=== PATIENT | female | born 1990 | race Caucasian/White ===

== ENCOUNTER 2016-07-01 09:25 | Emergency (ER) | payer OTHER ==
[2016-07-01 10:37] VITALS: BP 104/61
--- NOTE | 2016-07-01 10:40 | UC ---
Skin Complaint HPI - HPI Summary HPI Summary: 1) Tattoo on right upper arm one week ago. Pruritic pustules spreading for five days. 2) External vaginal itching and yellow vaginal discharge worsening over about five days. Patient believes it is a yeast infection. Denies change in sexual partner or concern for STI. Has had previous yeast infections and feels identical at this time. 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 PCP Hyacinth Barkley. [ End ] - History of Current Complaint Chief Complaint: UCGeneralIllness Time Seen by Provider: 07/01/16 10:33 Stated Complaint: RASH/PERSONAL Hx Obtained From: Patient Hx Last Menstrual Period: 05/15/16 ?: No Onset/Duration: Gradual Onset Onset Severity: Mild Current Severity: Moderate Aggravating: Nothing Alleviating: Nothing Associated Signs & Symptoms: Positive: Negative - Allergy/Home Medications Allergies/Adverse Reactions: Allergies Allergy/AdvReac Type Severity Reaction Status Date / Time Adhesive Tape Allergy Rash Verified 07/01/16 10:15 Bee Venom Allergy Swelling Verified 07/01/16 10:15 Penicillins Allergy Unknown Verified 07/01/16 10:15 Reaction Details Review of Systems Constitutional: Negative Skin: Rash Eyes: Negative ENT: Negative Respiratory: Negative Cardiovascular: Negative Gastrointestinal: Negative Genitourinary: Negative, Other - vaginal itching Motor: Negative Neurovascular: Negative Musculoskeletal: Negative Neurological: Negative Psychological: Negative All Other Systems Reviewed And Are Negative: Yes PMH/Surg Hx/FS Hx/Imm Hx Previously Healthy: Yes Endocrine History Of: Reports: Thyroid Disease - Hypothyroidism Denies: Diabetes Cardiovascular History Of: Denies: Cardiac Disorders, Hypertension Respiratory History Of: Reports: Asthma Denies: COPD GI/ History Of: Denies: Ulcer Psychological History Of: Denies: Anxiety - Surgical History Surgical History: Yes Surgery Procedure, Year, and Place: Tubal Ligation, 04/14/16, [place]; Bilateral Kidney Stents, 2012. Tonsillectomy - Family History Known Family History: Positive: None - Social History Alcohol Use: Rare Alcohol Amount: 1 Beer nightly or every other night Substance Use Type: None Smoking Status (MU): Heavy Every Day Tobacco Smoker Type: Cigarettes Amount Used/How Often: 1/2 PPD Length of Time of Smoking/Using Tobacco: 7 Years Have You Smoked in the Last Year: Yes Household Exposure Type: Cigarettes Physical Exam Triage Information Reviewed: Yes Appearance: Well-Appearing, No Pain Distress, Well-Nourished Vital Signs: Initial Vital Signs Temp 98.4 F 07/01/16 10:11 Pulse 95 07/01/16 10:11 Resp 18 07/01/16 10:11 BP 104/61 07/01/16 10:11 Pulse Ox 99 07/01/16 10:11 Vital Signs Reviewed: Yes Eye Exam: Normal ENT Exam: Normal Dental Exam: Normal Neck exam: Normal Neck: Positive: 1 Respiratory Exam: Normal Cardiovascular Exam: Normal Musculoskeletal Exam: Normal Neurological Exam: Normal Psychological Exam: Normal Skin: Positive: rashes, significant lesion(s) - right arm, raised, pruritic, papular lesions honey colored and some are crusted and others with some mild honey colored discharge Course/Dx - Diagnoses Provider Diagnoses: Impetigo / staph infection right arm from previous recent tatoo Discharge - Discharge Plan Condition: Good Disposition: HOME Prescriptions: Cephalexin CAP* [Keflex CAP*] 500 mg PO TID #30 cap Patient Education Materials: Impetigo (ED) Referrals: CATERINA Briceno [Primary Care Provider] - 3 Days
== END 2016-07-01 11:28 | disposition home or self-care (01) ==
LOC: UCCORT 09:25
DX: L01.00 Impetigo, unspecified (principal); L81.8 Other specified disorders of pigmentation; A49.01 Methicillin susceptible Staphylococcus aureus infection, unspecified site; Z88.0 Allergy status to penicillin; F17.210 Nicotine dependence, cigarettes, uncomplicated
CPT/HCPCS: 87070; 87205; 87640; 87641; 99212; G0463

== ENCOUNTER 2016-09-05 16:11 | Emergency (ER) | payer OTHER ==
[2016-09-05 16:28] VITALS: BP 116/71
--- NOTE | 2016-09-05 17:19 | UC ---
UC Dental HPI - HPI Summary HPI Summary: 26 yo female with right upper dental pain x 2 weeks worse past 1-2 days now face feels swollen no f/c also c/o vaginal itching and vulvar rash x 1 day - History of Current Complaint Chief Complaint: UCDentalProblem Stated Complaint: DENTAL COMPLAINT/PERSONAL Time Seen by Provider: 09/05/16 16:30 Hx Obtained From: Patient Hx Last Menstrual Period: july 17 Onset/Duration: Gradual Onset, Lasting Weeks, Worse Since - 1-2 days Severity: Severe Pain Intensity: 7 Pain Scale Used: 0-10 Numeric Aggravating: Nothing Alleviating: Nothing - Allergies/Home Medications Allergies/Adverse Reactions: Allergies Allergy/AdvReac Type Severity Reaction Status Date / Time Adhesive Tape Allergy Rash Verified 09/05/16 16:28 Bee Venom Allergy Swelling Verified 09/05/16 16:28 Penicillins Allergy Unknown Verified 09/05/16 16:28 Reaction Details PMH/Surg Hx/FS Hx/Imm Hx Previously Healthy: Yes - Surgical History Surgical History: Yes Surgery Procedure, Year, and Place: Bilateral Kidney Stents, 2012. Tonsillectomy - Family History Known Family History: Positive: Cardiac Disease, Hypertension, Diabetes, Other - [place] various types - Social History Alcohol Use: Occasionally Alcohol Amount: 1 Beer nightly or every other night Substance Use Type: None Smoking Status (MU): Heavy Every Day Tobacco Smoker Type: Cigarettes Amount Used/How Often: 1/2 PPD Length of Time of Smoking/Using Tobacco: 7 Years Have You Smoked in the Last Year: Yes Household Exposure Type: Cigarettes Review of Systems Constitutional: Negative Skin: Negative Eyes: Negative ENT: Dental Pain Respiratory: Negative Cardiovascular: Negative Gastrointestinal: Negative Genitourinary: Other - vag itch and vulvar rash Motor: Negative Neurovascular: Negative Musculoskeletal: Negative Neurological: Negative Psychological: Negative All Other Systems Reviewed And Are Negative: Yes Physical Exam Triage Information Reviewed: Yes Appearance: Well-Appearing, No Pain Distress, Well-Nourished Vital Signs: Initial Vital Signs Temp 98.3 F 09/05/16 16:22 Pulse 76 09/05/16 16:22 Resp 16 09/05/16 16:22 BP 116/71 09/05/16 16:22 Pulse Ox 100 09/05/16 16:22 Vital Signs Reviewed: Yes Eyes: Positive: Conjunctiva Clear ENT: Positive: Hearing grossly normal. Negative: Nasal congestion, Nasal drainage, Trismus, Muffled/hoarse voice Dental: Positive: Other: - generalized porr dention Neck: Positive: Supple, Nontender Respiratory: Positive: Lungs clear, Normal breath sounds, No respiratory distress Cardiovascular: Positive: RRR, No Murmur Abdomen Description: Positive: Nontender, No Organomegaly, Soft, Other: - ext genitialia- red rash, vagina-whitish d/c, cervix no d/c, no CMT,adenexa- nontenter no mass, uterus normal size Musculoskeletal: Positive: ROM Intact, No Edema Dental Complaint Course/Dx - Differential Dx/Diagnosis Provider Diagnoses: dentalagia. vulvovaginitis (suspect yeast) Discharge - Discharge Plan Condition: Stable Disposition: HOME Prescriptions: Clindamycin Cap(NF) [Cleocin 300 mg Cap(NF)] 300 mg PO QID #28 cap Fluconazole 150 MG (NF) [Diflucan 150 mg (NF)] 150 mg PO WEEKLY #3 tab HYDROcodone/ACETAMIN 5-325 MG* [[place] 5-325 TAB*] 1 tab PO Q4H PRN #8 tab MDD 2 PRN Reason: Pain - Severe Ibuprofen TAB* [Motrin TAB*] 600 mg PO Q6H PRN #40 tab PRN Reason: Pain Patient Education Materials: Vaginitis (ED), Toothache (ED) Referrals: CATERINA Briceno [Primary Care Provider] - 7 Days (if not better) Additional Instructions: to er for new or worsening symptoms
== END 2016-09-05 17:15 | disposition home or self-care (01) ==
LOC: UCCORT 16:11
DX: K08.89 Other specified disorders of teeth and supporting structures (principal); N76.0 Acute vaginitis; Z91.030 Bee allergy status; Z88.0 Allergy status to penicillin; Z91.048 Other nonmedicinal substance allergy status; F17.210 Nicotine dependence, cigarettes, uncomplicated
CPT/HCPCS: 87480; 87491; 87510; 87591; 99212; G0463

== ENCOUNTER 2016-10-09 16:54 | Emergency (ER) | payer OTHER ==
--- NOTE | 2016-10-09 17:05 | UC ---
Throat Pain/Nasal Paco HPI - HPI Summary HPI Summary: 26 year old female presents with complains of sinus congestion. - History of Current Complaint Stated Complaint: HEADACHE,SINUSES, EARS Time Seen by Provider: 10/09/16 17:04 Hx Last Menstrual Period: july 17 - Allergies/Home Medications Allergies/Adverse Reactions: Allergies Allergy/AdvReac Type Severity Reaction Status Date / Time Adhesive Tape Allergy Rash Verified 10/09/16 17:04 Bee Venom Allergy Swelling Verified 10/09/16 17:04 Penicillins Allergy Unknown Verified 10/09/16 17:04 Reaction Details Home Medications: Home Medications Phenylephrine-Chlorpheniramine [Jazz-[place] Plus Cold & 5-2-10-325 mg] 1 cap PO Q6H PRN 10/09/16 [History Confirmed 10/09/16] PMH/Surg Hx/FS Hx/Imm Hx - Surgical History Surgical History: Yes Surgery Procedure, Year, and Place: Bilateral Kidney Stents, 2013. Tonsillectomy - Family History Known Family History: Positive: None, Cardiac Disease, Hypertension, Diabetes, Other - [place] various types - Social History Alcohol Use: Occasionally Alcohol Amount: 1 Beer nightly or every other night Substance Use Type: None Smoking Status (MU): Heavy Every Day Tobacco Smoker Type: Cigarettes Amount Used/How Often: 1/2 PPD Length of Time of Smoking/Using Tobacco: 7 Years Have You Smoked in the Last Year: Yes Household Exposure Type: Cigarettes Review of Systems Constitutional: Negative Skin: Negative Eyes: Negative ENT: Sinus Congestion, Sinus Pain/Tenderness Respiratory: Negative Cardiovascular: Negative Gastrointestinal: Negative Genitourinary: Negative Motor: Negative Neurovascular: Negative Musculoskeletal: Negative Neurological: Negative Psychological: Negative All Other Systems Reviewed And Are Negative: Yes Physical Exam Triage Information Reviewed: Yes Eye Exam: Normal ENT Exam: Normal ENT: Positive: Pharyngeal erythema, Nasal congestion Dental Exam: Normal Neck exam: Normal Neck: Positive: 1 Respiratory Exam: Normal Cardiovascular Exam: Normal Abdominal Exam: Normal Musculoskeletal Exam: Normal Neurological Exam: Normal Psychological Exam: Normal Skin Exam: Normal Throat Pain/Nasal Course/Dx - Differential Dx/Diagnosis Provider Diagnoses: sinusitis Discharge - Discharge Plan Condition: Stable Disposition: HOME Prescriptions: Azithromyxin HAMZAH (NF) [Z-Hamzah (Zithromax) 250 mg tabs #6] 2 tab PO .TODAY, THEN 1 DAILY #6 tab Fluticasone NASAL * [Flonase *] 2 spray BOTH NARES DAILY #1 btl Patient Education Materials: Sinusitis (ED) Referrals: CATERINA LoweryMillie [Primary Care Provider] - If Needed
[2016-10-09 17:09] VITALS: BP 126/72
== END 2016-10-09 17:17 | disposition home or self-care (01) ==
LOC: UCCORT 16:54
DX: J32.9 Chronic sinusitis, unspecified (principal); Z88.0 Allergy status to penicillin; F17.210 Nicotine dependence, cigarettes, uncomplicated
CPT/HCPCS: 99212; G0463

== ENCOUNTER 2016-12-09 09:19 | Emergency (ER) | payer OTHER ==
[2016-12-09 09:52] VITALS: BP 100/59
--- NOTE | 2016-12-09 10:12 | UC ---
Complaint Female HPI - HPI Summary HPI Summary: 26 year old with history of previous UTI and kidney stones. Has Urinary burning & frequency x2 days. Today, pt woke up w/ lower back pain that is mild and relieved by APAP. No n/v/d of fever. no flank pain. no recent travel or abx. [ End ] - History Of Current Complaint Chief Complaint: UCGU Stated Complaint: BACK PAIN/URINARY Time Seen by Provider: 12/09/16 09:57 Hx Obtained From: Patient Hx Last Menstrual Period: 11/24/16 Onset/Duration: Gradual Onset Character: Dull Aggravating Factor(s): Urination Associated Signs And Symptoms: Positive: Negative, Back Pain - Allergies/Home Medications Allergies/Adverse Reactions: Allergies Allergy/AdvReac Type Severity Reaction Status Date / Time Adhesive Tape Allergy Rash Verified 12/09/16 09:41 Bee Venom Allergy Swelling Verified 12/09/16 09:41 Penicillins Allergy Unknown Verified 12/09/16 09:41 Reaction Details Home Medications: Home Medications Acetaminophen TAB* [Tylenol TAB*] 1,000 mg PO Q4H PRN 12/09/16 [History Confirmed 12/09/16] Citalopram TAB* [Celexa TAB*] 40 mg PO DAILY 12/09/16 [History Confirmed ] PMH/Surg Hx/FS Hx/Imm Hx Previously Healthy: Yes GI/ History: Kidney Stones - Surgical History Surgical History: Yes Surgery Procedure, Year, and Place: Bilateral Kidney Stents, 2013. Tonsillectomy. tubal - Family History Known Family History: Positive: None, Cardiac Disease, Hypertension, Diabetes, Other - [place] various types - Social History Occupation: Employed Full-time Lives: With Family Alcohol Use: None Alcohol Amount: 1 Beer nightly or every other night Substance Use Type: None Smoking Status (MU): Heavy Every Day Tobacco Smoker Type: Cigarettes Amount Used/How Often: 1/2 PPD Length of Time of Smoking/Using Tobacco: 7 Years Have You Smoked in the Last Year: Yes Household Exposure Type: Cigarettes Review of Systems Genitourinary: Dysuria, Frequency, Urgency All Other Systems Reviewed And Are Negative: Yes Physical Exam Triage Information Reviewed: Yes Appearance: Well-Appearing, No Pain Distress, Well-Nourished Vital Signs: Initial Vital Signs Temp 98.1 F 12/09/16 09:42 Pulse 80 12/09/16 09:42 Resp 16 12/09/16 09:42 BP 100/59 12/09/16 09:42 Pulse Ox 98 12/09/16 09:42 Vital Signs Reviewed: Yes Eye Exam: Normal ENT Exam: Normal Dental Exam: Normal Neck exam: Normal Neck: Positive: 1 Respiratory Exam: Normal Cardiovascular Exam: Normal Abdominal Exam: Normal Abdomen Description: Negative: CVA Tenderness (R), CVA Tenderness (L) Musculoskeletal Exam: Normal Neurological Exam: Normal Psychological Exam: Normal Skin Exam: Normal Complaint Female Dx - Course Course Of Treatment: She does not have CVA tenderness. She is aware of S/S of kidney stones and denies feeling like that at this time as she has had stones in the past surgically removed at [facility]. She will call for f/u at [facility] if any concerns. - Differential Dx/Diagnosis Differential Diagnosis/HQI/PQRI: Ureteral Stone, Urinary Tract Infection Provider Diagnoses: UTI Discharge - Discharge Plan Condition: Good Disposition: HOME Prescriptions: Sulfamethox/Trimethoprim DS* [Bactrim DS 800/160 TAB*] 1 tab PO BID #10 tab Patient Education Materials: Urinary Tract Infection in Women (ED) Referrals: CATERINA Briceno [Primary Care Provider] - 3 Days Additional Instructions: As we discussed if your symptoms do not resolve please go to your Urologist at [facility]
== END 2016-12-09 10:27 | disposition home or self-care (01) ==
LOC: UCCORT 09:19
DX: N39.0 Urinary tract infection, site not specified (principal); B95.7 Other staphylococcus as the cause of diseases classified elsewhere; Z87.440 Personal history of urinary (tract) infections; Z87.442 Personal history of urinary calculi; Z91.030 Bee allergy status; Z88.0 Allergy status to penicillin; Z91.048 Other nonmedicinal substance allergy status; F17.210 Nicotine dependence, cigarettes, uncomplicated
CPT/HCPCS: 81003; 87077; 87086; 99212; G0463

== ENCOUNTER 2017-02-01 17:27 | Emergency (ER) | payer OTHER ==
[2017-02-01 17:57] VITALS: BP 110/66
--- NOTE | 2017-02-01 18:53 | RAD ---
HISTORY: Remote trauma, tailbone pain COMPARISONS: None VIEWS: 3, frontal, outlet, and lateral views of the sacrum and coccyx FINDINGS: BONE DENSITY: Normal. BONES: There is no displaced fracture. The sacral arches are intact. JOINTS: There is no arthropathy. ALIGNMENT: There is no dislocation. SOFT TISSUES: Unremarkable. OTHER FINDINGS: Surgical clips are noted in the pelvis. IMPRESSION: NO ACUTE OSSEOUS INJURY OF THE SACRUM AND COCCYX. PLAIN FILMS ARE RELATIVELY INSENSITIVE TO NONDISPLACED FRACTURES OF THE SACRUM AND COCCYX. IF THERE IS PERSISTENT CLINICAL CONCERN FOR SACROCOCCYGEAL OSSEOUS PATHOLOGY, BONE SCANNING MAY BE MORE SENSITIVE
--- NOTE | 2017-02-01 18:55 | UC ---
Complaint Female HPI - HPI Summary HPI Summary: urinary frequency and urgency x 2 days worse at night, no burning, no fever, no chills 2. lower back pain x 2 years / injury to her tailbone 2 years ago , cont. to have pain - History Of Current Complaint Chief Complaint: UCGU Stated Complaint: URINARY;TAILBONE PAIN OLD INJURY Time Seen by Provider: 02/01/17 17:47 Hx Obtained From: Patient Hx Last Menstrual Period: Tubal, irreg, 01/29/17 ?: No Onset/Duration: Gradual Onset, Lasting Days - 2, Still Present Timing: Constant Severity Initially: Moderate Severity Currently: Moderate Character: Not Applicable Aggravating Factor(s): Urination Associated Signs And Symptoms: Positive: Back Pain. Negative: Fever, Vaginal Bleeding/Discharge, Vaginal Discharge, Nausea, Vomiting(# Of Episodes =), Genital Swelling, Genital Blisters, Retained Foregin Body (Specify) - Allergies/Home Medications Allergies/Adverse Reactions: Allergies Allergy/AdvReac Type Severity Reaction Status Date / Time Adhesive Tape Allergy Rash Verified 02/01/17 17:57 Bee Venom Allergy Swelling Verified 02/01/17 17:57 Penicillins Allergy Unknown Verified 02/01/17 17:57 Reaction Details Home Medications: Home Medications Levothyroxine TAB* [Synthroid TAB*] 137 mcg PO 0800 02/01/17 [History Confirmed 02/01/17] PMH/Surg Hx/FS Hx/Imm Hx Previously Healthy: Yes - Surgical History Surgical History: Yes Surgery Procedure, Year, and Place: Bilateral Kidney Stents, 2013. Tonsillectomy. Tubal - Family History Known Family History: Positive: None, Cardiac Disease, Hypertension, Diabetes, Other - [place] various types - Social History Alcohol Use: Occasionally Alcohol Amount: 1 Beer nightly or every other night Substance Use Type: None Smoking Status (MU): Heavy Every Day Tobacco Smoker Type: Cigarettes Amount Used/How Often: 1/2 PPD Length of Time of Smoking/Using Tobacco: 7 Years Have You Smoked in the Last Year: Yes Household Exposure Type: Cigarettes Review of Systems Constitutional: Negative Skin: Negative Eyes: Negative ENT: Negative Respiratory: Negative Cardiovascular: Negative Genitourinary: Frequency, Urgency Is Patient Immunocompromised?: No All Other Systems Reviewed And Are Negative: Yes Physical Exam Triage Information Reviewed: Yes Appearance: Well-Appearing, No Pain Distress, Well-Nourished Vital Signs: Initial Vital Signs Temp 98.1 F 02/01/17 17:51 Pulse 94 02/01/17 17:51 Resp 14 02/01/17 17:51 BP 110/66 02/01/17 17:51 Pulse Ox 99 02/01/17 17:51 Vital Signs Reviewed: Yes Eyes: Positive: Conjunctiva Clear ENT: Positive: Normal ENT inspection, Hearing grossly normal, Pharynx normal Neck: Positive: Supple, Nontender, No Lymphadenopathy Respiratory: Positive: Chest non-tender, Lungs clear, Normal breath sounds Cardiovascular: Positive: RRR, No Murmur, Pulses Normal Abdominal Exam: Normal Abdomen Description: Positive: Nontender, No Organomegaly, Soft. Negative: CVA Tenderness (R), CVA Tenderness (L), Distended, Guarding Bowel Sounds: Positive: Present Musculoskeletal: Positive: Other: - lower back/ tailbone tenderness, pain with flexion , no erythema, no swelling Complaint Female Dx - Differential Dx/Diagnosis Provider Diagnoses: uti. pain tailbone Discharge - Discharge Plan Condition: Stable Disposition: HOME Prescriptions: Sulfamethox/Trimethoprim DS* [Bactrim DS 800/160 TAB*] 1 tab PO BID #14 tab Patient Education Materials: Urinary Tract Infection in Women (ED), Back Pain ( ED), Lower Back Exercises (ED) Referrals: CATERINA Briceno [Primary Care Provider] - 7 Days
== END 2017-02-01 18:57 | disposition home or self-care (01) ==
LOC: UCCORT 17:27
DX: N39.0 Urinary tract infection, site not specified (principal); M53.3 Sacrococcygeal disorders, not elsewhere classified; F17.210 Nicotine dependence, cigarettes, uncomplicated; Z88.0 Allergy status to penicillin; Z91.030 Bee allergy status; Z91.048 Other nonmedicinal substance allergy status
CPT/HCPCS: 72220; 81003; 87077; 87086; 87491; 87591; 99212; G0463

== ENCOUNTER 2017-03-19 16:00 | Emergency (ER) | payer OTHER ==
--- NOTE | 2017-03-19 16:34 | UC ---
Throat Pain/Nasal Paco HPI - HPI Summary HPI Summary: 26 year old female presents with complains of sinus congestion, cough and headache. - History of Current Complaint Chief Complaint: UCRespiratory Stated Complaint: COUGH/CONGESTION Time Seen by Provider: 03/19/17 16:34 Hx Obtained From: Patient Hx Last Menstrual Period: Tubal, irreg, 01/29/17 Onset/Duration: Sudden Onset Severity: Moderate Cough: Productive - Allergies/Home Medications Allergies/Adverse Reactions: Allergies Allergy/AdvReac Type Severity Reaction Status Date / Time Adhesive Tape Allergy Rash Verified 03/19/17 16:31 Bee Venom Allergy Swelling Verified 03/19/17 16:31 Penicillins Allergy Unknown Verified 03/19/17 16:31 Reaction Details Home Medications: Home Medications Benzonatate [TESSALON 200 MG CAP] 1 cap TID PRN 03/19/17 [History Confirmed ] Clindamycin HCl [Clindamycin 150 MG CAP*] 1 cap QID 03/19/17 [History Confirmed 03/19/17] PMH/Surg Hx/FS Hx/Imm Hx Previously Healthy: Yes - Surgical History Surgical History: Yes Surgery Procedure, Year, and Place: Bilateral Kidney Stents, 2013. Tonsillectomy. Tubal - Family History Known Family History: Positive: None, Cardiac Disease, Hypertension, Diabetes, Other - [place] various types - Social History Alcohol Use: Occasionally Alcohol Amount: 1 Beer nightly or every other night Substance Use Type: None Smoking Status (MU): Heavy Every Day Tobacco Smoker Type: Cigarettes Amount Used/How Often: 1/2 PPD Length of Time of Smoking/Using Tobacco: 7 Years Have You Smoked in the Last Year: Yes Household Exposure Type: Cigarettes Review of Systems Constitutional: Negative Skin: Negative Eyes: Negative ENT: Sore Throat, Nasal Discharge, Sinus Congestion, Sinus Pain/Tenderness Respiratory: Cough Cardiovascular: Negative Gastrointestinal: Negative Genitourinary: Negative Motor: Negative Neurovascular: Negative Musculoskeletal: Negative Neurological: Negative Psychological: Negative All Other Systems Reviewed And Are Negative: Yes Physical Exam Triage Information Reviewed: Yes Vital Signs Reviewed: Yes Eye Exam: Normal ENT: Positive: Nasal congestion, Nasal drainage Dental Exam: Normal Neck exam: Normal Neck: Positive: 1 Respiratory: Positive: Wheezing Cardiovascular Exam: Normal Abdominal Exam: Normal Musculoskeletal Exam: Normal Neurological Exam: Normal Psychological Exam: Normal Skin Exam: Normal Throat Pain/Nasal Course/Dx - Differential Dx/Diagnosis Provider Diagnoses: sinus congestion. cough. post nasal drip Discharge - Discharge Plan Condition: Stable Disposition: HOME Prescriptions: DOXYcycline CAP(*) [DOXYcycline 100MG CAP(*)] 100 mg PO BID #14 cap LoraTADine TAB(NF) [Claritin 10 MG TAB(NF)] 10 mg PO DAILY #30 tab Magic M W2 Pritesh/Maal/Nyst/Lido* 5 ml SWISH SPIT QID PRN #120 ml PRN Reason: Pain Promethazine-Dm [Promethazine/Dextromethor 6.25-15 mg/5Ml] 1 teasp PO BEDTIME PRN #120 ml PRN Reason: Cough Patient Education Materials: Sinusitis (ED), Allergic Rhinitis (ED) Referrals: CATERINA Briceno [Medical Doctor] -
[2017-03-19 16:39] VITALS: BP 111/68
--- OUTSIDE RECORDS SUMMARY | 2017-03-19 17:14 | XMS REPORT | Clinical Summary ---
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 ANALYST Conditions or Problems Problem Name Problem Onset Status Entry Provider Comment Standard Annotate Code Date Date Description History of V12.29 Active ONOFRE Personal history hypothyroidism 12/05 04/04 MINO CUELLAR of other MD endocrine, metabolic, and immunity disorders Asthma, 493.90 Active ONOFRE Asthma, persistent, 12/05 07/19 MINO CUELLAR unspecified mild MD Low back pain, 724.2 Active ONOFRE Lumbago chronic 11/18 08/16 MINO CUELLAR MD GERD 530.81 Active YUDI Esophageal 11/21 11/21 ATKINS reflux MIGRAINE 346.00 Active HEBER Migraine with r/o 06/10 06/10 JERMAINE aura, without sinusitis ELIF SNYDER mention of intractable migraine, without mention of status migrainosus Obesity 278.00 Active TAVARES BAH Obesity, 12/03 12/03 SIMEON RETAIL LINK ANALYST unspecified Tobacco use 305.1 Active Agnes Tobacco use 07/11 07/11 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 HEBER Acute nasopharyngiti 08/01 08/20 JERMAINE nasopharyngitis s (common cold ELIF SNYDER [common cold] / URI) Candidiasis, 112.1 Active HEBER Candidiasis of vaginal 08/01 08/20 JERMAINE vulva and vagina ELIF SNYDER Depression, 296.22 Active ONOFRE Major depressive major, 11/14 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 No more than 1 dose in 24 hours SYNTHROID 1 by mouth LEVOTHYROXINE 266819627 Active ONOFRE 137 MCG every day on 08/20 SODIUM 19 MINO ORAL TABLET empty stomach POLO PURVIS ANGELA CITALOPRAM TAKE ONE CITALOPRAM 965971386 Active ONOFRE HBR 40 MG TABLET BY HYDROBROMIDE MINO TABLET MOUTH EVERY WHITE MD DAY Immunizations Vaccine Administration Date Value Standard Description influenza immunization (Flu given influenza virus vaccine, Vax) has been administered unspecified formulation influenza immunization (Flu given influenza virus vaccine, Vax) has been administered unspecified formulation Tetanus toxoid, reduced given tetanus toxoid, reduced diphtheria toxoid and diphtheria toxoid, and acellular Pertussis vaccine, acellular pertussis vaccine, absorbed (TdaP) given adsorbed influenza immunization (Flu given influenza virus vaccine, Vax) has been administered unspecified formulation influenza immunization (Flu given influenza virus vaccine, Vax) has been administered unspecified formulation Vital Signs Date Name Value Unit Range Description blood pressure, diastolic 83 mm[Hg] BP yanes blood pressure, systolic 128 mm[Hg] BP sys height E&M 61 [in_us] Bdy height pulse rate E&M 92 /min Heart rate respiratory rate E&M 18 /min Resp rate temperature E&M 98.3 [degF] Body temperature weight E&M 194 [lb_av] Weight Measured blood pressure, diastolic 69 mm[Hg] BP yanes blood pressure, systolic 91 mm[Hg] BP sys height E&M 61 [in_us] Bdy height pulse rate E&M 102 /min Heart rate respiratory rate E&M 18 /min Resp rate temperature E&M 98.2 [degF] Body temperature weight E&M 190 [lb_av] Weight Measured height E&M 61 [in_us] Bdy height weight E&M 193.50 [lb_av] Weight Measured blood pressure, diastolic 76 mm[Hg] BP yanes blood pressure, systolic 111 mm[Hg] BP sys height E&M 61 [in_us] Bdy height pulse rate E&M 114 /min Heart rate respiratory rate E&M 16 /min Resp rate temperature E&M 98.9 [degF] Body temperature weight E&M 205 [lb_av] Weight Measured blood pressure, diastolic 82 mm[Hg] BP yanes blood pressure, systolic 116 mm[Hg] BP sys height E&M 61 [in_us] Bdy height pulse rate E&M 96 /min Heart rate respiratory rate E&M 20 /min Resp rate temperature E&M 97.6 [degF] Body temperature weight E&M 204.50 [lb_av] Weight Measured blood pressure, diastolic 79 mm[Hg] BP yanes blood pressure, systolic 130 mm[Hg] BP sys height E&M 61 [in_us] Bdy height pulse rate E&M 90 /min Heart rate respiratory rate E&M 18 /min Resp rate temperature E&M 98.2 [degF] Body temperature weight E&M 200 [lb_av] Weight Measured Diagnostic Results Date Name Value Unit Range Description Lab Report: CBC - Hematology leukocyte count, blood 6.6 10*3/mm3 3.1-10.7 erythrocyte (RBC) count 4.72 M/UL 10*6/mm3 3.90-5.40 hemoglobin, blood 13.8 g/dL 11.6-15.8 hematocrit, blood 40.8 % 36.0-46.1 mean corpuscular volume, RBC 86.4 fL 80.9-99.0 mean corpuscular hemoglobin, RBC 29.2 pg 25.9-32.7 mean corpuscular hemoglobin concentration, 33.8 G/DL % 30.8- 34.3 RBC platelet count 170 10*3/mm3 268-936 6846/10/17 mean platelet volume 11.1 fL 8.9-12.4 Lab Report: COMPREHENSIVE METABOLIC PANEL - Chemistry blood glucose, random 92 mg/dL 74-106 urea nitrogen, blood 6 mg/dL 7-18 creatinine, serum 0.7 mg/dL 0.6-1.3 Estimated Glomerular Filtration >60 mL/min mL/min/1.73m2 > 60 Rate (calc) Glomerular Filtration rate >60 mL/min >60 Tunisian urea nitrogen/creatinine ratio, 8.5 ratio serum sodium, serum 138 mmol/L 224-037 2399/12/01 potassium, serum 4.0 mmol/L 3.5-5.1 chloride, serum 105 mmol/L 98-107 carbon dioxide, venous blood 28 mmol/L 21-32 anion gap, serum 5 mEq/L 8-16 calcium, serum 8.9 mg/dL 8.5-10.1 protein, total, serum 7.4 g/dL 6.4-8.2 albumin, serum 4.2 g/dL 3.4-5.0 globulins, serum, total 3.2 g/dL 1.9-4.3 albumin/globulin ratio, serum 1.3 ratio bilirubin, serum, total 0.3 mg/dL 0.2-1.0 aspartate aminotransferase (SGOT), 12 U/L 15-37 serum alanine aminotransferase (SGPT), 21 U/L 12-78 serum thyroid stimulating hormone, serum 0.24 u[iU]/mL 0.30-4.20 Lab Report: IRON-TIBC-%SAT - Chemistry iron, serum 62 ug/dL 50-170 iron binding capacity, total 320 ug/dL 410-114 0208/10/17 transferrin saturation, serum 19 % 12-57 blood glucose, random 88 mg/dL 74-106 urea nitrogen, blood 11 mg/dL 7-18 creatinine, serum 0.7 mg/dL 0.6-1.3 Estimated Glomerular Filtration >60 mL/min mL/min/1.73m2 > 60 Rate (calc) Glomerular Filtration rate >60 mL/min >60 [place]isian urea nitrogen/creatinine ratio, 15.7 ratio serum sodium, serum 140 mmol/L 410-123 1690/10/17 potassium, serum 4.1 mmol/L 3.5-5.1 chloride, serum 108 mmol/L 98-107 carbon dioxide, venous blood 29 mmol/L 21-32 anion gap, serum 3 mEq/L 8-16 calcium, serum 9.1 mg/dL 8.5-10.1 protein, total, serum 7.6 g/dL 6.4-8.2 albumin, serum 3.9 g/dL 3.4-5.0 globulins, serum, total 3.7 g/dL 1.9-4.3 albumin/globulin ratio, serum 1.1 ratio bilirubin, serum, total 0.3 mg/dL 0.2-1.0 aspartate aminotransferase (SGOT), 14 U/L 15-37 serum alanine aminotransferase (SGPT), 18 U/L 12-78 serum thyroid stimulating hormone, serum 0.01 u[iU]/mL 0.30-4.20 Lab Report: THYROID STIM HORMONE - Chemistry thyroid stimulating hormone, serum 0.06 u[iU]/mL 0.30-4.20 thyroid stimulating hormone, serum 0.05 u[iU]/mL 0.30-4.20 Lab Report: THYROID STIM HORMONE 10.3 - Chemistry thyroid stimulating hormone, serum 10.30 u[iU]/mL 0.30-4.20 Lab Report: UA RFX MICRO CULTURE II - Chemistry urobilinogen, urine 0.2 E.U./DL {Ehrlich_U}/dL 0.2-1.0 leukocyte (WBC) esterase, urine NEGATIVE NEGATIVE Lab Report: UA RFX MICRO CULTURE II - Urinalysis nitrite, urine, semiquantitative NEGATIVE NEGATIVE urine color YELLOW YELLOW appearance, urine CLEAR CLEAR glucose, urine, semiquantitative NEGATIVE NEGATIVE bilirubin, urine NEGATIVE NEGATIVE ketones, urine, by test strip NEGATIVE NEGATIVE specific gravity, urine 1.015 1.010-1.030 blood in urine (hemoglobin) by dipstick NEGATIVE NEGATIVE Lab Report: URINE HCG (QUALITATIVE) - Chemistry leukocyte (WBC) esterase, urine NEGATIVE NEGATIVE urobilinogen, urine 1.0 E.U./DL {Ehrlich_U}/dL 0.2-1.0 Lab Report: URINE HCG (QUALITATIVE) - Urinalysis nitrite, urine, semiquantitative NEGATIVE NEGATIVE urine color YELLOW YELLOW appearance, urine CLEAR CLEAR glucose, urine, semiquantitative NEGATIVE NEGATIVE bilirubin, urine SMALL NEGATIVE ketones, urine, by test strip 15 NEGATIVE specific gravity, urine 1.015 1.010-1.030 blood in urine (hemoglobin) by dipstick NEGATIVE NEGATIVE Office Visit: OV: Cough - Urinalysis urine color yellow appearance, urine clear leukocyte esterase, urine, by dipstick 1+ nitrite, urine, semiquantitative negative urobilinogen, urine, semiquantitative (dipstick) negative blood in urine (hemoglobin) by dipstick negative ketones, urine, by test strip trace (5) bilirubin, urine negative glucose, urine, semiquantitative negative pH, urine, semiquantitative 7.5 specific gravity, urine 1.010 : Weeks : 6wks - Hematology hemoglobin, blood 14.6 g/dL : Weeks : 6wks - Urinalysis urine color yellow appearance, urine clear leukocyte esterase, urine, by dipstick negative nitrite, urine, semiquantitative negative urobilinogen, urine, semiquantitative (dipstick) negative blood in urine (hemoglobin) by dipstick negative ketones, urine, by test strip negative bilirubin, urine negative glucose, urine, semiquantitative negative pH, urine, semiquantitative 7.0 specific gravity, urine 1.020 Encounters Code Encounter Date Provider Facility CPT-56561 Ofc Vst, Est Level III ONOFRE CUELLAR [facility] 14:20:10 EST CPT-94916 Ofc Vst, Est Level III ONOFRE CUELLAR [facility] 10:36:42 EDT CPT-23970 Ofc Vst, Est Level III HEBER ASENCIO [facility] 17:31:00 EDT CLAUDIO CPT-12150 Ofc Vst, Est Level IV NEMESIO SNYDER [facility] 16:01:58 EDT CPT-64872 Ofc Vst, Est Level III Sebast[facility] 12:21:01 EST CPT-17684 Ofc Vst, Est Level III JACKIE SNYDER [facility] 16:55:30 EST CPT-47475 Ofc Vst, Est Level III TAVARES HENDRIX NAKITA [facility] 17:13:04 EDT CPT-43810 Ofc Vst, Est Level III HEBER ASENCIO [facility] 09:51:03 EDT CLAUDIO CPT-47850 Ofc Vst, Est Level III YUDI [facility] 17:26:38 EDT CPT-24279 Ofc Vst, Est Level III [facility] 10:15:40 EDT CPT-28132 Ofc Vst, Est Level III LINWOOD REGAN [facility] 19:13:22 EDT CPT-37881 Ofc Vst, Est Level III ONOFRE CUELLAR [facility] 11:56:42 EDT CPT-10993 Ofc Vst, Est Level III ONOFRE CUELLAR [facility] 10:47:48 EDT CPT-07642 Ofc Vst, Est Level III BREONNA DAWSON [facility] 17:53:05 EDT JAY SILVER CPT-41311 Ofc Vst, Est Level III HEBER SNYDER [facility] 20:37:06 EST Procedures Code Procedure Name Date Entry Date Standard Description CPT-59939 Influenza 3 yrs. & up 14:20:10 EST CPT-04122 Admin one Imm 14:20:10 EST CPT-10586 Venipuncture 14:20:08 EST CPT-07738 Est - PE 18-39 Y 10:35:13 EDT CPT-38634 HGB- In House 15:03:29 EST CPT-68247 Urine Dip - In House 15:03:29 EST CPT-17853 Post- 15:03:27 EST CPT-20613 Urine Dip - In House 09:33:42 EST CPT-29902 OB Visits 7+ 09:33:40 EST CPT-29768 OB Visits 7+ 09:46:21 EST CPT-42675 Urine Dip - In House 09:46:19 EST CPT-56847 OB Visits 7+ 11:28:08 EST CPT-85121 Urine Dip - In House 11:28:06 EST CPT-75562 Urine Dip - In House 12:00:07 EDT CPT-00400 OB Visits 7+ 10:21:01 EDT CPT-65865 OB Visits 7+ 09:51:15 EDT CPT-97715 Urine Dip - In House 09:51:13 EDT CPT-41966 OB Visits 7+ 11:05:33 EDT CPT-28638 Urine Dip - In House 11:05:32 EDT CPT-70807 OB Visits 7+ 13:41:00 EDT CPT-25044 Urine Preg Test - In House 13:40:25 EDT CPT-20126 Admin 2nd or more (each) 10:12:20 EDT CPT-19067 Admin one Imm 10:12:19 EDT CPT-94687 OB Visits 7+ 10:12:02 EDT CPT-96331 Influenza 3 yrs. & up 10:12:02 EDT CPT-03328 TDAP (Boostrix) 10:12:02 EDT CPT-74639 Urine Dip - In House 10:12:01 EDT CPT-08518 OB Visits 1-6 15:22:28 EDT CPT-85146 Venipuncture 15:22:28 EDT CPT-75668 Urine Dip - In House 15:22:26 EDT CPT-28035 OB Visits 1-6 09:43:34 EDT CPT-33882 Urine Dip - In House 09:43:33 EDT CPT-41294 Urine Dip - In House 09:34:51 EDT CPT-65113 OB Visits 1-6 09:34:50 EDT CPT-26092 2/3 Trimester 11:50:02 EDT CPT-52639 OB Visits 1-6 09:49:26 EDT CPT-55708 Venipuncture 09:49:26 EDT CPT-57282 Urine Dip - In House 09:49:24 EDT CPT-50709 OB Visits 1-6 14:16:45 EDT CPT-57687 Urine Dip - In House 14:16:43 EDT CPT-88324B Post Test Counseling Visit 14:18:58 EDT CPT-78380 Initial OB Visit 14:18:58 EDT CPT-81846 Urine Dip - In House 14:18:56 EDT CPT-16249 First Visit 15:17:15 EDT CPT-57340 Venipuncture 15:17:15 EDT CPT-62966 Urine Dip - In House 15:17:14 EDT CPT-65165 Urine Preg Test - In House 13:40:09 EST CPT-30377 Urine Dip - In House 16:28:24 EDT CPT-29983 PAP (Procedure Only) 16:28:23 EDT CPT-42680 Admin one Imm 15:45:45 EDT CPT-40833 Influenza 3 yrs. & up 15:45:45 EDT CPT-27018 IUD Removal (v25.42) 11:44:12 EST CPT-19779 Urine Preg Test - In [place] 12:29:06 EDT CPT-J7302 IUD(Mirena) 11:00:06 EDT CPT-05084 IUD Insertion (v25.1) 11:00:06 EDT CPT-12296 Urine Dip - In House 17:24:11 EDT CPT-66446 HGB- In House 11:44:26 EDT CPT-75045 PAP (Procedure Only) 11:44:26 EDT CPT-62699 Urine Dip - In House 11:44:26 EDT CPT-83721 Post- 11:44:26 EDT CPT-65516 Urine Dip - In House 09:18:28 EDT CPT-06104 Urine Dip - In House 12:12:17 EST CPT-12539 Urine Dip - In House 09:33:37 EST CPT-38930 Venipuncture 20:37:06 EST CPT-28571 Urine Dip - In House 14:31:36 EST CPT-37732 2/3 Trimester 12:13:26 EST CPT-26015 OB Visits 1-6 14:30:44 EST CPT-71245 Urine Dip - In House 14:30:44 EST CPT-78191 OB Visits 1-6 18:08:27 EST CPT-29875 2/3 Trimester 15:36:42 EST CPT-95266 Urine Dip - In House 18:08:27 EST CPT-87717 OB Visits 1-6 13:46:06 EST CPT-30096 Venipuncture 13:46:06 EST CPT-30129 Urine Dip - In House 13:46:06 EST CPT-97077 OB Visits 1-6 13:03:28 EDT CPT-47251 Influenza 3 yrs. & up 13:03:28 EDT CPT-77376 Admin one Imm 13:03:28 EDT CPT-72443 Urine Dip - In House 13:03:28 EDT CPT-26825 Initial OB Visit 05:52:14 EDT CPT-79500 PAP (Procedure Only) 05:52:14 EDT CPT-19971I Post Test Counseling Visit 05:52:14 EDT CPT-27558 Urine Dip - In House 05:52:14 EDT CPT-69698 First Visit 14:59:12 EDT CPT-43526 Venipuncture 14:59:12 EDT CPT-66043 Urine Dip - In House 14:59:12 EDT
--- OUTSIDE RECORDS SUMMARY | 2017-03-19 17:15 | XMS REPORT | Clinical Summary ---
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 No more than 1 dose in 24 hours SYNTHROID 1 by mouth LEVOTHYROXINE 743828341 Active ONOFRE 137 MCG every day on 08/20 SODIUM 19 MINO ORAL TABLET empty stomach POLO PURVIS ANGELA CITALOPRAM TAKE ONE CITALOPRAM 404243756 Active ONOFRE HBR 40 MG TABLET BY HYDROBROMIDE 01 MINO TABLET MOUTH EVERY WHITE MD DAY Immunizations Vaccine Administration Date Value Standard Description Tetanus toxoid, reduced given tetanus toxoid, reduced [...] Value Unit Range Description blood pressure, diastolic 69 mm[Hg] BP yanes [...] temperature weight E&M 200 [lb_av] Weight Measured blood pressure, diastolic 72 mm[Hg] BP yanes blood pressure, systolic 102 mm[Hg] BP sys height E&M 61 [in_us] Bdy height pulse rate E&M 100 /min Heart rate respiratory rate E&M 16 /min Resp rate temperature E&M 98.0 [degF] Body temperature weight E&M 200 [lb_av] [...] 30.8- 34.3 RBC platelet count 170 10*3/mm3 627-671 2693/10/17 mean platelet volume 11.1 fL 8.9-12.4 Lab Report: COMPREHENSIVE METABOLIC PANEL - Chemistry albumin/globulin ratio, serum 1.3 ratio bilirubin, serum, total 0.3 mg/dL 0.2-1.0 aspartate aminotransferase (SGOT), 12 U/L 15-37 serum alanine aminotransferase (SGPT), 21 U/L 12-78 serum thyroid stimulating hormone, serum 0.24 u[iU]/mL 0.30-4.20 blood glucose, random 92 mg/dL 74-106 urea nitrogen, blood 6 mg/dL 7-18 creatinine, serum 0.7 mg/dL 0.6-1.3 Estimated Glomerular Filtration >60 mL/min mL/min/1.73m2 > 60 Rate (calc) Glomerular Filtration rate >60 mL/min >60 Vietnamese urea nitrogen/creatinine ratio, 8.5 ratio serum sodium, serum 138 mmol/L 392-917 9792/12/01 potassium, serum 4.0 mmol/L 3.5-5.1 chloride, serum 105 mmol/L 98-107 carbon dioxide, venous blood 28 mmol/L 21-32 anion gap, serum 5 mEq/L 8-16 calcium, serum 8.9 mg/dL 8.5-10.1 protein, total, serum 7.4 g/dL 6.4-8.2 albumin, serum 4.2 g/dL 3.4-5.0 globulins, serum, total 3.2 g/dL 1.9-4.3 Lab Report: IRON-TIBC-%SAT - Chemistry iron binding capacity, total 320 ug/dL 572-956 1425/10/17 transferrin saturation, serum 19 % 12-57 blood glucose, random 88 mg/dL 74-106 urea nitrogen, blood 11 mg/dL 7-18 creatinine, serum 0.7 mg/dL 0.6-1.3 iron, serum 62 ug/dL 50-170 Estimated Glomerular Filtration >60 mL/min mL/min/1.73m2 > 60 Rate (calc) Glomerular Filtration rate >60 mL/min >60 Vietnamese urea nitrogen/creatinine ratio, 15.7 ratio serum sodium, serum 140 mmol/L 255-700 5379/10/17 potassium, serum 4.1 mmol/L 3.5-5.1 chloride, serum [...] - Urinalysis nitrite, urine, semiquantitative NEGATIVE NEGATIVE specific gravity, urine 1.015 1.010-1.030 blood in urine (hemoglobin) by dipstick NEGATIVE NEGATIVE ketones, urine, by test strip 15 NEGATIVE bilirubin, urine SMALL NEGATIVE glucose, urine, semiquantitative NEGATIVE NEGATIVE appearance, urine CLEAR CLEAR urine color YELLOW YELLOW Office Visit: OV: Cough - Urinalysis urine color yellow appearance, urine clear leukocyte esterase, urine, by dipstick 1+ nitrite, urine, semiquantitative negative urobilinogen, urine, semiquantitative (dipstick) negative blood in urine (hemoglobin) by dipstick negative ketones, urine, by test strip trace (5) bilirubin, urine negative glucose, urine, semiquantitative negative pH, urine, semiquantitative 7.5 specific gravity, urine 1.010 Office Visit: OV:possible uti - Urinalysis blood in urine (hemoglobin) by dipstick 3+ leukocyte esterase, urine, by dipstick 3+ nitrite, urine, semiquantitative positive appearance, urine cloudy urine color yellow urobilinogen, urine, semiquantitative (dipstick) negative ketones, urine, by test strip negative bilirubin, urine negative glucose, urine, semiquantitative negative pH, urine, semiquantitative 6.0 specific gravity, urine 1.030 : Weeks : 6wks - Hematology hemoglobin, [...] 1.020 Encounters Code Encounter Date Provider Facility CPT-36907 Ofc Vst, Est Level III ONOFRE CUELLAR [facility] 14:20:10 EST CPT-77089 Ofc Vst, Est Level III ONOFRE CUELLAR [facility] 10:36:42 EDT CPT-92497 Ofc Vst, Est Level III HEBER ASENCIO [facility] 17:31:00 EDT PA CPT-45611 Ofc Vst, Est Level IV NEMESIO DEE [facility] 16:01:58 EDT CPT-13267 Ofc Vst, Est Level III KATJA WITT, [facility] 12:21:01 EST CPT-96631 Ofc Vst, Est Level III JACKIE SNYDER [facility] 16:55:30 EST CPT-45423 Ofc Vst, Est Level III TAVARES NIURKA HENDRIX [facility] 17:13:04 EDT CPT-65074 Ofc Vst, Est Level III HEBER ASENCIO [facility] 09:51:03 EDT PA CPT-28438 [facility]c V[facility], Est [facility] EDT CPT-48440 Ofc Vst, Est Level III [facility] 10:15:40 EDT CPT-22024 Ofc Vst, Est Level III LINWOOD REGAN [facility] 19:13:22 EDT CPT-41768 Ofc Vst, Est Level III ONOFRE CUELLAR [facility] 11:56:42 EDT CPT-56677 Ofc Vst, Est Level III ONOFRE CUELLAR [facility] 10:47:48 EDT CPT-23561 Ofc Vst, Est Level III BREONNA DAWSON [facility] 17:53:05 EDT JAY SILVER CPT-73237 Ofc Vst, Est Level III HEBER SNYDER [facility] 20:37:06 EST Procedures Code Procedure Name Date Entry Date Standard Description CPT-13178 Influenza 3 yrs. & up 14:20:10 EST CPT-51215 Admin one Imm 14:20:10 EST CPT-13486 Venipuncture 14:20:08 EST CPT-34097 Est - PE 18-39 Y 10:35:13 EDT CPT-08689 HGB- In House 15:03:29 EST CPT-27422 Urine Dip - In House 15:03:29 EST CPT-44878 Post- 15:03:27 EST CPT-49972 Urine Dip - In House 09:33:42 EST CPT-02487 OB Visits 7+ 09:33:40 EST CPT-02729 OB Visits 7+ 09:46:21 EST CPT-22736 Urine Dip - In House 09:46:19 EST CPT-85935 OB Visits 7+ 11:28:08 EST CPT-31195 Urine Dip - In House 11:28:06 EST CPT-35178 Urine Dip - In House 12:00:07 EDT CPT-56296 OB Visits 7+ 10:21:01 EDT CPT-58000 OB Visits 7+ 09:51:15 EDT CPT-15885 Urine Dip - In House 09:51:13 EDT CPT-07409 OB Visits 7+ 11:05:33 EDT CPT-26608 Urine Dip - In House 11:05:32 EDT CPT-14291 OB Visits 7+ 13:41:00 EDT CPT-79881 Urine Preg Test - In House 13:40:25 EDT CPT-81610 Admin 2nd or more (each) 10:12:20 EDT CPT-79116 Admin one Imm 10:12:19 EDT CPT-40961 OB Visits 7+ 10:12:02 EDT CPT-72832 Influenza 3 yrs. & up 10:12:02 EDT CPT-47090 TDAP (Boostrix) 10:12:02 EDT CPT-61153 Urine Dip - In House 10:12:01 EDT CPT-40965 OB Visits 1-6 15:22:28 EDT CPT-28671 Venipuncture 15:22:28 EDT CPT-48766 Urine Dip - In House 15:22:26 EDT CPT-26271 OB Visits 1-6 09:43:34 EDT CPT-53836 Urine Dip - In House 09:43:33 EDT CPT-42210 Urine Dip - In House 09:34:51 EDT CPT-63140 OB Visits 1-6 09:34:50 EDT CPT-25105 2/3 Trimester 11:50:02 EDT CPT-45234 OB Visits 1-6 09:49:26 EDT CPT-72966 Venipuncture 09:49:26 EDT CPT-76599 Urine Dip - In House 09:49:24 EDT CPT-29184 OB Visits 1-6 14:16:45 EDT CPT-43114 Urine Dip - In House 14:16:43 EDT CPT-77248S Post Test Counseling Visit 14:18:58 EDT CPT-32892 Initial OB Visit 14:18:58 EDT CPT-74689 Urine Dip - In House 14:18:56 EDT CPT-10857 First Visit 15:17:15 EDT CPT-52125 Venipuncture 15:17:15 EDT CPT-03095 Urine Dip - In House 15:17:14 EDT CPT-17004 Urine Preg Test - In [place] 13:40:09 EST CPT-64971 Urine Dip - In House 16:28:24 EDT CPT-91071 PAP (Procedure Only) 16:28:23 EDT CPT-64909 Admin one [facility] 15:45:45 EDT CPT-06314 Influenza 3 yrs. & up 15:45:45 EDT CPT-93954 IUD Removal (v25.42) 11:44:12 EST CPT-07860 Urine Preg Test - In [place] 12:29:06 EDT CPT-J7302 IUD(Mirena) 11:00:06 EDT CPT-41113 IUD Insertion (v25.1) 11:00:06 EDT CPT-59302 Urine Dip - In House 17:24:11 EDT CPT-48985 HGB- In House 11:44:26 EDT CPT-37675 PAP (Procedure Only) 11:44:26 EDT CPT-09821 Urine Dip - In House 11:44:26 EDT CPT-87170 Post- 11:44:26 EDT CPT-68584 Urine Dip - In House 09:18:28 EDT CPT-22932 Urine Dip - In House 12:12:17 EST CPT-88446 Urine Dip - In House 09:33:37 EST CPT-69353 Venipuncture 20:37:06 EST CPT-93751 Urine Dip - In House 14:31:36 EST CPT-26970 2/3 Trimester 12:13:26 EST CPT-01479 OB Visits 1-6 14:30:44 EST CPT-36032 Urine Dip - In House 14:30:44 EST CPT-15238 OB Visits 1-6 18:08:27 EST CPT-58576 2/3 Trimester 15:36:42 EST CPT-57940 Urine Dip - In House 18:08:27 EST CPT-42639 OB Visits 1-6 13:46:06 EST CPT-77804 Venipuncture 13:46:06 EST CPT-26963 Urine Dip - In House 13:46:06 EST CPT-79892 OB Visits 1-6 13:03:28 EDT CPT-87817 Influenza 3 yrs. & up 13:03:28 EDT CPT-33502 Admin one [facility] 13:03:28 EDT CPT-73327 Urine Dip - In House 13:03:28 EDT CPT-88248 Initial OB Visit 05:52:14 EDT CPT-32443 PAP (Procedure Only) 05:52:14 EDT CPT-15033S Post Test Counseling Visit 05:52:14 EDT CPT-27557 Urine Dip - In House 05:52:14 EDT CPT-72818 First Visit 14:59:12 EDT CPT-41877 Venipuncture 14:59:12 EDT CPT-14674 Urine Dip - In House 14:59:12 EDT
--- OUTSIDE RECORDS SUMMARY | 2017-03-19 17:15 | XMS REPORT | Clinical Summary ---
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 No more than 1 dose in 24 hours SYNTHROID 1 by mouth LEVOTHYROXINE 950990722 Active ONOFRE 137 MCG every day on 08/20 SODIUM 19 MINO ORAL TABLET empty stomach WHITE ANGELA CITALOPRAM TAKE ONE CITALOPRAM 924718911 Active ONOFRE HBR 40 MG TABLET BY [...] Description blood pressure, diastolic 83 mm[Hg] BP aynes blood pressure, systolic 128 mm[Hg] BP sys [...] 30.8- 34.3 RBC platelet count 170 10*3/mm3 911-265 6725/10/17 mean platelet volume 11.1 fL 8.9-12.4 Lab Report: COMPREHENSIVE METABOLIC PANEL - Chemistry blood glucose, random 92 mg/dL 74-106 urea nitrogen, blood 6 mg/dL 7-18 creatinine, serum 0.7 mg/dL 0.6-1.3 Estimated Glomerular Filtration >60 mL/min mL/min/1.73m2 > 60 Rate (calc) Glomerular Filtration rate >60 mL/min >60 [place] urea nitrogen/creatinine ratio, 8.5 ratio serum sodium, serum 138 mmol/L 778-606 5960/12/01 potassium, serum 4.0 mmol/L 3.5-5.1 chloride, serum [...] u[iU]/mL 0.30-4.20 Lab Report: IRON-TIBC-%SAT - Chemistry albumin/globulin ratio, serum 1.1 ratio bilirubin, serum, total 0.3 mg/dL 0.2-1.0 aspartate aminotransferase (SGOT), 14 U/L 15-37 serum alanine aminotransferase (SGPT), 18 U/L 12-78 serum thyroid stimulating hormone, serum 0.01 u[iU]/mL 0.30-4.20 iron, serum 62 ug/dL 50-170 iron binding capacity, total 320 ug/dL 528-113 1202/10/17 transferrin saturation, serum 19 % 12-57 blood glucose, random 88 mg/dL 74-106 urea nitrogen, blood 11 mg/dL 7-18 creatinine, serum 0.7 mg/dL 0.6-1.3 Estimated Glomerular Filtration >60 mL/min mL/min/1.73m2 > 60 Rate (calc) Glomerular Filtration rate >60 mL/min >60 [place] urea nitrogen/creatinine ratio, 15.7 ratio serum sodium, serum 140 mmol/L 794-741 8913/10/17 potassium, serum 4.1 mmol/L 3.5-5.1 chloride, serum 108 mmol/L 98-107 carbon dioxide, venous blood 29 mmol/L 21-32 anion gap, serum 3 mEq/L 8-16 calcium, serum 9.1 mg/dL 8.5-10.1 protein, total, serum 7.6 g/dL 6.4-8.2 albumin, serum 3.9 g/dL 3.4-5.0 globulins, serum, total 3.7 g/dL 1.9-4.3 Lab Report: THYROID STIM HORMONE - Chemistry [...] 1.020 Encounters Code Encounter Date Provider Facility CPT-10958 Ofc Vst, Est Level III ONOFRE CUELLAR [facility] 14:20:10 EST CPT-91722 Ofc Vst, Est Level III ONOFRE CUELLAR [facility] 10:36:42 EDT CPT-09356 Ofc Vst, Est Level III HEBER ASENCIO [facility] 17:31:00 EDT CLAUDIO CPT-53002 Ofc Vst, Est Level IV NEMESIO SNYDER [facility] 16:01:58 EDT CPT-61157 Ofc Vst, Est Level III KATJA WITT [facility] 12:21:01 EST CPT-05755 Ofc Vst, Est Level III JACKIE SNYDER [facility] 16:55:30 EST CPT-61745 Ofc Vst, Est Level III TAVARES MACE [facility] 17:13:04 EDT CPT-37248 Ofc Vst, Est Level III HEBER ASENCIO [facility] 09:51:03 EDT PA CPT-40995 Ofc Vst, Est Level III YUDI SAWYER [facility] 17:26:38 EDT CPT-54367 Ofc Vst, Est Level III YUDI SAWYER [facility] 10:15:40 EDT CPT-96600 Ofc Vst, Est Level III LINWOOD REGAN [facility] 19:13:22 EDT CPT-14888 Ofc Vst, Est Level III ONOFRE CUELLAR [facility] 11:56:42 EDT CPT-85466 Ofc Vst, Est Level III ONOFRE CUELLAR [facility] 10:47:48 EDT CPT-20991 Ofc Vst, Est Level III BREONNA DAWSON [facility] 17:53:05 EDT JAY SILVER CPT-13360 Ofc Vst, Est Level III HEBER SNYDER [facility] 20:37:06 EST Procedures Code Procedure Name Date Entry Date Standard Description CPT-43217 Influenza 3 yrs. & up 14:20:10 EST CPT-56215 Admin one Imm 14:20:10 EST CPT-64820 Venipuncture 14:20:08 EST CPT-46657 Est - PE 18-39 Y 10:35:13 EDT CPT-14608 HGB- In House 15:03:29 EST CPT-19022 Urine Dip - In House 15:03:29 EST CPT-92164 Post- 15:03:27 EST CPT-56838 Urine Dip - In House 09:33:42 EST CPT-19427 OB Visits 7+ 09:33:40 EST CPT-46156 OB Visits 7+ 09:46:21 EST CPT-58072 Urine Dip - In House 09:46:19 EST CPT-43533 OB Visits 7+ 11:28:08 EST CPT-16457 Urine Dip - In House 11:28:06 EST CPT-71037 Urine Dip - In House 12:00:07 EDT CPT-84534 OB Visits 7+ 10:21:01 EDT CPT-69519 OB Visits 7+ 09:51:15 EDT CPT-37448 Urine Dip - In House 09:51:13 EDT CPT-97536 OB Visits 7+ 11:05:33 EDT CPT-08401 Urine Dip - In House 11:05:32 EDT CPT-17502 OB Visits 7+ 13:41:00 EDT CPT-03543 Urine Preg Test - In House 13:40:25 EDT CPT-34513 Admin 2nd or more (each) 10:12:20 EDT CPT-19836 Admin one Imm 10:12:19 EDT CPT-34686 OB Visits 7+ 10:12:02 EDT CPT-54629 Influenza 3 yrs. & up 10:12:02 EDT CPT-28845 TDAP (Boostrix) 10:12:02 EDT CPT-81202 Urine Dip - In House 10:12:01 EDT CPT-51081 OB Visits 1-6 15:22:28 EDT CPT-59391 Venipuncture 15:22:28 EDT CPT-56592 Urine Dip - In House 15:22:26 EDT CPT-66461 OB Visits 1-6 09:43:34 EDT CPT-26257 Urine Dip - In House 09:43:33 EDT CPT-34259 Urine Dip - In House 09:34:51 EDT CPT-97747 OB Visits 1-6 09:34:50 EDT CPT-98753 2/3 Trimester 11:50:02 EDT CPT-91542 OB Visits 1-6 09:49:26 EDT CPT-47773 Venipuncture 09:49:26 EDT CPT-49356 Urine Dip - In House 09:49:24 EDT CPT-51960 OB Visits 1-6 14:16:45 EDT CPT-44463 Urine Dip - In House 14:16:43 EDT CPT-39172R Post Test Counseling Visit 14:18:58 EDT CPT-07904 Initial OB Visit 14:18:58 EDT CPT-75118 Urine Dip - In House 14:18:56 EDT CPT-07360 First Visit 15:17:15 EDT CPT-20678 Venipuncture 15:17:15 EDT CPT-57022 Urine Dip - In House 15:17:14 EDT CPT-16543 Urine Preg Test - In House 13:40:09 EST CPT-30815 Urine Dip - In House 16:28:24 EDT CPT-89006 PAP (Procedure Only) 16:28:23 EDT CPT-18183 Admin one Imm 15:45:45 EDT CPT-47299 Influenza 3 yrs. & up 15:45:45 EDT CPT-07978 IUD Removal (v25.42) 11:44:12 EST CPT-67941 Urine Preg Test - In [place] 12:29:06 EDT CPT-J7302 IUD(Mirena) 11:00:06 EDT CPT-40856 IUD Insertion (v25.1) 11:00:06 EDT CPT-39098 Urine Dip - In House 17:24:11 EDT CPT-35609 HGB- In House 11:44:26 EDT CPT-07540 PAP (Procedure Only) 11:44:26 EDT CPT-64358 Urine Dip - In House 11:44:26 EDT CPT-46409 Post- 11:44:26 EDT CPT-59123 Urine Dip - In House 09:18:28 EDT CPT-27278 Urine Dip - In House 12:12:17 EST CPT-85059 Urine Dip - In House 09:33:37 EST CPT-21771 Venipuncture 20:37:06 EST CPT-67318 Urine Dip - In House 14:31:36 EST CPT-34083 2/3 Trimester 12:13:26 EST CPT-25017 OB Visits 1-6 14:30:44 EST CPT-91015 Urine Dip - In House 14:30:44 EST CPT-02669 OB Visits 1-6 18:08:27 EST CPT-03269 2/3 Trimester 15:36:42 EST CPT-94849 Urine Dip - In House 18:08:27 EST CPT-82207 OB Visits 1-6 13:46:06 EST CPT-70660 Venipuncture 13:46:06 EST CPT-66905 Urine Dip - In House 13:46:06 EST CPT-54186 OB Visits 1-6 13:03:28 EDT CPT-92420 Influenza 3 yrs. & up 13:03:28 EDT CPT-37400 Admin one Imm 13:03:28 EDT CPT-73667 Urine Dip - In House 13:03:28 EDT CPT-38036 Initial OB Visit 05:52:14 EDT CPT-02536 PAP (Procedure Only) 05:52:14 EDT CPT-78548S Post Test Counseling Visit 05:52:14 EDT CPT-62643 Urine Dip - In House 05:52:14 EDT CPT-44845 First Visit 14:59:12 EDT CPT-93112 Venipuncture 14:59:12 EDT CPT-49803 Urine Dip - In House 14:59:12 EDT
--- OUTSIDE RECORDS SUMMARY | 2017-03-19 17:16 | XMS REPORT | Clinical Summary ---
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 No more than 1 dose in 24 hours SYNTHROID 1 by mouth LEVOTHYROXINE 512004395 Active ONOFRE 137 MCG every day on 08/20 SODIUM 19 MINO ORAL TABLET empty stomach POLO PURVIS ANGELA CITALOPRAM TAKE ONE CITALOPRAM 859895082 Active ONOFRE HBR 40 MG TABLET BY [...] Range Description Lab Report: CBC - Hematology erythrocyte (RBC) count 4.72 M/UL 10*6/mm3 3.90-5.40 hemoglobin, blood 13.8 g/dL 11.6-15.8 hematocrit, blood 40.8 % 36.0-46.1 leukocyte count, blood 6.6 10*3/mm3 3.1-10.7 mean corpuscular hemoglobin concentration, 33.8 G/DL % 30.8- 34.3 RBC platelet count 170 10*3/mm3 378-208 3891/10/17 mean platelet volume 11.1 fL 8.9-12.4 mean corpuscular volume, RBC 86.4 fL 80.9-99.0 mean corpuscular hemoglobin, RBC 29.2 pg 25.9-32.7 Lab Report: COMPREHENSIVE METABOLIC PANEL - Chemistry sodium, serum 138 mmol/L 669-592 9364/12/01 potassium, serum 4.0 mmol/L 3.5-5.1 chloride, serum [...] (calc) Glomerular Filtration rate >60 mL/min >60 [place] urea nitrogen/creatinine ratio, 8.5 ratio serum Lab Report: IRON-TIBC-%SAT - Chemistry iron, serum 62 ug/dL 50-170 iron binding capacity, total 320 ug/dL 905-215 8458/10/17 transferrin saturation, serum 19 % 12-57 blood glucose, random 88 mg/dL 74-106 urea nitrogen, blood 11 mg/dL 7-18 creatinine, serum 0.7 mg/dL 0.6-1.3 Estimated Glomerular Filtration >60 mL/min mL/min/1.73m2 > 60 Rate (calc) Glomerular Filtration rate >60 mL/min >60 [place] urea nitrogen/creatinine ratio, 15.7 ratio serum sodium, serum 140 mmol/L 990-085 3544/10/17 potassium, serum 4.1 mmol/L 3.5-5.1 chloride, serum [...] - Urinalysis nitrite, urine, semiquantitative NEGATIVE NEGATIVE bilirubin, urine NEGATIVE NEGATIVE glucose, urine, semiquantitative NEGATIVE NEGATIVE appearance, urine CLEAR CLEAR urine color YELLOW YELLOW blood in urine (hemoglobin) by dipstick NEGATIVE NEGATIVE specific gravity, urine 1.015 1.010-1.030 ketones, urine, by test strip NEGATIVE NEGATIVE Lab Report: URINE HCG (QUALITATIVE) - Chemistry urobilinogen, urine 1.0 E.U./DL {Ehrlich_U}/dL 0.2-1.0 leukocyte (WBC) esterase, urine NEGATIVE NEGATIVE Lab Report: URINE HCG (QUALITATIVE) - Urinalysis nitrite, urine, semiquantitative NEGATIVE NEGATIVE ketones, urine, by test strip 15 NEGATIVE specific gravity, urine 1.015 1.010-1.030 urine color YELLOW YELLOW appearance, urine CLEAR CLEAR glucose, urine, semiquantitative NEGATIVE NEGATIVE bilirubin, urine SMALL NEGATIVE blood in urine (hemoglobin) by dipstick NEGATIVE [...] 1.020 Encounters Code Encounter Date Provider Facility CPT-39790 Ofc Vst, Est Level III ONOFRE CUELLAR [facility] 14:20:10 EST CPT-43032 Ofc Vst, Est Level III ONOFRE CUELLAR [facility] 10:36:42 EDT CPT-46895 Ofc Vst, Est Level III HEBER ASENCIO [facility] 17:31:00 EDT PA CPT-19503 Ofc Vst, Est Level IV NEMESIO DEE [facility] Office 16:01:58 EDT CPT-86497 Ofc Vst, Est Level III KATJA WITT, [facility] 12:21:01 EST CPT-75885 Ofc Vst, Est Level III JACKIE SNYDER [facility] 16:55:30 EST CPT-75535 Ofc Vst, Est Level III TAVARES NIURKA HENDRIX [facility] Office 17:13:04 EDT CPT-82630 Ofc Vst, Est Level III HEBER ASENCIO [facility] 09:51:03 EDT PA CPT-13381 Ofc Vst, Est Level III [facility] 17:26:38 EDT CPT-77636 Ofc Vst, Est Level III [facility] Office 10:15:40 EDT CPT-98284 Ofc Vst, Est Level III LINWOOD REGAN [facility] 19:13:22 EDT CPT-08112 Ofc Vst, Est Level III ONOFRE CUELLAR [facility] 11:56:42 EDT CPT-69801 Ofc Vst, Est Level III ONOFRE CUELLAR [facility] 10:47:48 EDT CPT-45107 Ofc Vst, Est Level III BREONNA DAWSON [facility] 17:53:05 EDT JAY SILVER CPT-74594 Ofc Vst, Est Level III HEBER SNYDER [facility] 20:37:06 EST Procedures Code Procedure Name Date Entry Date Standard Description CPT-49134 Influenza 3 yrs. & up 14:20:10 EST CPT-69476 Admin one Imm 14:20:10 EST CPT-11232 Venipuncture 14:20:08 EST CPT-67128 Est - PE 18-39 Y 10:35:13 EDT CPT-97038 HGB- In House 15:03:29 EST CPT-79462 Urine Dip - In House 15:03:29 EST CPT-16208 Post- 15:03:27 EST CPT-08105 Urine Dip - In House 09:33:42 EST CPT-15217 OB Visits 7+ 09:33:40 EST CPT-55601 OB Visits 7+ 09:46:21 EST CPT-42522 Urine Dip - In House 09:46:19 EST CPT-19429 OB Visits 7+ 11:28:08 EST CPT-05026 Urine Dip - In House 11:28:06 EST CPT-31371 Urine Dip - In House 12:00:07 EDT CPT-13617 OB Visits 7+ 10:21:01 EDT CPT-52420 OB Visits 7+ 09:51:15 EDT CPT-30279 Urine Dip - In House 09:51:13 EDT CPT-35258 OB Visits 7+ 11:05:33 EDT CPT-58652 Urine Dip - In House 11:05:32 EDT CPT-09230 OB Visits 7+ 13:41:00 EDT CPT-04023 Urine Preg Test - In House 13:40:25 EDT CPT-42625 Admin 2nd or more (each) 10:12:20 EDT CPT-07008 Admin one Imm 10:12:19 EDT CPT-74409 OB Visits 7+ 10:12:02 EDT CPT-40174 Influenza 3 yrs. & up 10:12:02 EDT CPT-53308 TDAP (Boostrix) 10:12:02 EDT CPT-02668 Urine Dip - In House 10:12:01 EDT CPT-35633 OB Visits 1-6 15:22:28 EDT CPT-89094 Venipuncture 15:22:28 EDT CPT-16311 Urine Dip - In House 15:22:26 EDT CPT-81540 OB Visits 1-6 09:43:34 EDT CPT-87211 Urine Dip - In House 09:43:33 EDT CPT-09965 Urine Dip - In House 09:34:51 EDT CPT-86531 OB Visits 1-6 09:34:50 EDT CPT-50254 2/3 Trimester 11:50:02 EDT CPT-25947 OB Visits 1-6 09:49:26 EDT CPT-78314 Venipuncture 09:49:26 EDT CPT-95809 Urine Dip - In House 09:49:24 EDT CPT-09578 OB Visits 1-6 14:16:45 EDT CPT-16306 Urine Dip - In House 14:16:43 EDT CPT-71806R Post Test Counseling Visit 14:18:58 EDT CPT-25768 Initial OB Visit 14:18:58 EDT CPT-81145 Urine Dip - In House 14:18:56 EDT CPT-43570 First Visit 15:17:15 EDT CPT-37853 Venipuncture 15:17:15 EDT CPT-14026 Urine Dip - In House 15:17:14 EDT CPT-00499 Urine Preg Test - In [place] 13:40:09 EST CPT-33697 Urine Dip - In House 16:28:24 EDT CPT-59286 PAP (Procedure Only) 16:28:23 EDT CPT-77408 Admin one [facility] 15:45:45 EDT CPT-38491 Influenza 3 yrs. & up 15:45:45 EDT CPT-42592 IUD Removal (v25.42) 11:44:12 EST CPT-03887 Urine Preg Test - In [place] 12:29:06 EDT CPT-J7302 IUD(Mirena) 11:00:06 EDT CPT-38806 IUD Insertion (v25.1) 11:00:06 EDT CPT-58704 Urine Dip - In House 17:24:11 EDT CPT-71928 HGB- In House 11:44:26 EDT CPT-13136 PAP (Procedure Only) 11:44:26 EDT CPT-45978 Urine Dip - In House 11:44:26 EDT CPT-61704 Post- 11:44:26 EDT CPT-49720 Urine Dip - In House 09:18:28 EDT CPT-94020 Urine Dip - In House 12:12:17 EST CPT-96242 Urine Dip - In House 09:33:37 EST CPT-42537 Venipuncture 20:37:06 EST CPT-72347 Urine Dip - In House 14:31:36 EST CPT-83412 2/3 Trimester 12:13:26 EST CPT-34333 OB Visits 1-6 14:30:44 EST CPT-05656 Urine Dip - In House 14:30:44 EST CPT-69275 OB Visits 1-6 18:08:27 EST CPT-45446 2/3 Trimester 15:36:42 EST CPT-87046 Urine Dip - In House 18:08:27 EST CPT-53313 OB Visits 1-6 13:46:06 EST CPT-30417 Venipuncture 13:46:06 EST CPT-72462 Urine Dip - In House 13:46:06 EST CPT-73864 OB Visits 1-6 13:03:28 EDT CPT-06187 Influenza 3 yrs. & up 13:03:28 EDT CPT-51533 Admin one [facility] 13:03:28 EDT CPT-83521 Urine Dip - In House 13:03:28 EDT CPT-66728 Initial OB Visit 05:52:14 EDT CPT-67292 PAP (Procedure Only) 05:52:14 EDT CPT-65280C Post Test Counseling Visit 05:52:14 EDT CPT-19031 Urine Dip - In House 05:52:14 EDT CPT-37297 First Visit 14:59:12 EDT CPT-99078 Venipuncture 14:59:12 EDT CPT-91343 Urine Dip - In House 14:59:12 EDT
--- OUTSIDE RECORDS SUMMARY | 2017-03-19 17:17 | XMS REPORT | Clinical Summary ---
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 No more than 1 dose in 24 hours SYNTHROID 1 by mouth LEVOTHYROXINE 544107624 Active ONOFRE 137 MCG every day on 08/20 SODIUM 19 MINO ORAL TABLET empty stomach POLO PURVIS ANGELA CITALOPRAM TAKE ONE CITALOPRAM 100866975 Active ONOFRE HBR 40 MG TABLET BY [...] 30.8- 34.3 RBC platelet count 170 10*3/mm3 020-793 2539/10/17 mean platelet volume 11.1 fL 8.9-12.4 Lab Report: IRON-TIBC-%SAT - Chemistry iron, serum 62 ug/dL 50-170 iron binding capacity, total 320 ug/dL 112-638 9349/10/17 transferrin saturation, serum 19 % 12-57 blood glucose, random 88 mg/dL 74-106 urea nitrogen, blood 11 mg/dL 7-18 creatinine, serum 0.7 mg/dL 0.6-1.3 Estimated Glomerular Filtration >60 mL/min mL/min/1.73m2 > 60 Rate (calc) Glomerular Filtration rate >60 mL/min >60 [place] urea nitrogen/creatinine ratio, 15.7 ratio serum sodium, serum 140 mmol/L 013-828 9277/10/17 potassium, serum 4.1 mmol/L 3.5-5.1 chloride, serum [...] HORMONE - Chemistry thyroid stimulating hormone, serum 0.05 u[iU]/mL 0.30-4.20 thyroid stimulating hormone, serum 0.06 u[iU]/mL 0.30-4.20 Lab Report: THYROID STIM HORMONE [...] 1.020 Encounters Code Encounter Date Provider Facility CPT-42382 Ofc Vst, Est Level III ONOFRE CUELLAR [facility] 10:36:42 EDT CPT-49296 Ofc Vst, Est Level III HEBER ASENCIO [facility] 17:31:00 EDT CLAUDIO CPT-31106 Ofc Vst, Est Level IV NEMESIO SNYDER [facility] 16:01:58 EDT CPT-62504 Ofc Vst, Est Level III KATJA WITT [facility] 12:21:01 EST CPT-60104 Ofc Vst, Est Level III JACKIE SNYDER [facility] 16:55:30 EST CPT-88822 Ofc Vst, Est Level III TAVARES HENDRIX [facility] Office 17:13:04 EDT CPT-99674 Ofc Vst, Est Level III HEBER ASENCIO [facility] 09:51:03 EDT CLAUDIO CPT-59852 Ofc Vst, Est Level III YUDI SAWYER [facility] 17:26:38 EDT CPT-37103 Ofc Vst, Est Level III YUDI SAWYER [facility] 10:15:40 EDT CPT-39381 Ofc Vst, Est Level III LINWOOD REGAN [facility] 19:13:22 EDT CPT-53555 Ofc Vst, Est Level III ONOFRE CUELLAR [facility] 11:56:42 EDT CPT-93263 Ofc Vst, Est Level III ONOFRE CUELLAR [facility] 10:47:48 EDT CPT-45988 Ofc Vst, Est Level III BREONNA DAWSON [facility] 17:53:05 EDT JAY SILVER CPT-13803 Ofc Vst, Est Level III HEBER SNYDER [facility] 20:37:06 EST Procedures Code Procedure Name Date Entry Date Standard Description CPT-07956 Est - PE 18-39 Y 10:35:13 EDT CPT-81723 HGB- In House 15:03:29 EST CPT-72497 Urine Dip - In House 15:03:29 EST CPT-81141 Post- 15:03:27 EST CPT-63218 Urine Dip - In House 09:33:42 EST CPT-04198 OB Visits 7+ 09:33:40 EST CPT-69623 OB Visits 7+ 09:46:21 EST CPT-11670 Urine Dip - In House 09:46:19 EST CPT-09064 OB Visits 7+ 11:28:08 EST CPT-56699 Urine Dip - In House 11:28:06 EST CPT-40128 Urine Dip - In House 12:00:07 EDT CPT-11032 OB Visits 7+ 10:21:01 EDT CPT-71956 OB Visits 7+ 09:51:15 EDT CPT-80787 Urine Dip - In House 09:51:13 EDT CPT-80757 OB Visits 7+ 11:05:33 EDT CPT-50341 Urine Dip - In House 11:05:32 EDT CPT-17081 OB Visits 7+ 13:41:00 EDT CPT-40409 Urine Preg Test - In House 13:40:25 EDT CPT-80762 Admin 2nd or more (each) 10:12:20 EDT CPT-18888 Admin one Imm 10:12:19 EDT CPT-87064 OB Visits 7+ 10:12:02 EDT CPT-43886 Influenza 3 yrs. & up 10:12:02 EDT CPT-94297 TDAP (Boostrix) 10:12:02 EDT CPT-63013 Urine Dip - In House 10:12:01 EDT CPT-36668 OB Visits 1-6 15:22:28 EDT CPT-19770 Venipuncture 15:22:28 EDT CPT-91762 Urine Dip - In House 15:22:26 EDT CPT-18472 OB Visits 1-6 09:43:34 EDT CPT-80352 Urine Dip - In House 09:43:33 EDT CPT-79741 Urine Dip - In House 09:34:51 EDT CPT-79298 OB Visits 1-6 09:34:50 EDT CPT-06017 2/3 Trimester 11:50:02 EDT CPT-28257 OB Visits 1-6 09:49:26 EDT CPT-35459 Venipuncture 09:49:26 EDT CPT-23460 Urine Dip - In House 09:49:24 EDT CPT-89456 OB Visits 1-6 14:16:45 EDT CPT-35194 Urine Dip - In House 14:16:43 EDT CPT-83228B Post Test Counseling Visit 14:18:58 EDT CPT-09309 Initial OB Visit 14:18:58 EDT CPT-82768 Urine Dip - In House 14:18:56 EDT CPT-91388 First Visit 15:17:15 EDT CPT-06149 Venipuncture 15:17:15 EDT CPT-04537 Urine Dip - In House 15:17:14 EDT CPT-73651 Urine Preg Test - In [place] 13:40:09 EST CPT-64874 Urine Dip - In House 16:28:24 EDT CPT-74961 PAP (Procedure Only) 16:28:23 EDT CPT-05059 Admin one Imm 15:45:45 EDT CPT-91877 Influenza 3 yrs. & up 15:45:45 EDT CPT-93581 IUD Removal (v25.42) 11:44:12 EST CPT-52579 Urine Preg Test - In [place] 12:29:06 EDT CPT-J7302 IUD(Mirena) 11:00:06 EDT CPT-46126 IUD Insertion (v25.1) 11:00:06 EDT CPT-78225 Urine Dip - In House 17:24:11 EDT CPT-42013 HGB- In House 11:44:26 EDT CPT-01706 PAP (Procedure Only) 11:44:26 EDT CPT-72435 Urine Dip - In House 11:44:26 EDT CPT-63290 Post- 11:44:26 EDT CPT-66892 Urine Dip - In House 09:18:28 EDT CPT-75375 Urine Dip - In House 12:12:17 EST CPT-87670 Urine Dip - In House 09:33:37 EST CPT-54394 Venipuncture 20:37:06 EST CPT-16796 Urine Dip - In House 14:31:36 EST CPT-73248 2/3 Trimester 12:13:26 EST CPT-00311 OB Visits 1-6 14:30:44 EST CPT-65254 Urine Dip - In House 14:30:44 EST CPT-48590 OB Visits 1-6 18:08:27 EST CPT-68535 2/3 Trimester 15:36:42 EST CPT-06340 Urine Dip - In House 18:08:27 EST CPT-76696 OB Visits 1-6 13:46:06 EST CPT-83337 Venipuncture 13:46:06 EST CPT-59862 Urine Dip - In House 13:46:06 EST CPT-19225 OB Visits 1-6 13:03:28 EDT CPT-94133 Influenza 3 yrs. & up 13:03:28 EDT CPT-58558 Admin one Imm 13:03:28 EDT CPT-15894 Urine Dip - In House 13:03:28 EDT CPT-65602 Initial OB Visit 05:52:14 EDT CPT-89962 PAP (Procedure Only) 05:52:14 EDT CPT-27204E Post Test Counseling Visit 05:52:14 EDT CPT-47139 Urine Dip - In House 05:52:14 EDT CPT-33165 First Visit 14:59:12 EDT CPT-97673 Venipuncture 14:59:12 EDT CPT-75053 Urine Dip - In House 14:59:12 EDT
== END 2017-03-19 17:13 | disposition home or self-care (01) ==
LOC: UCCORT 16:00
DX: R09.81 Nasal congestion (principal); R09.82 Postnasal drip; R05 Cough; Z91.030 Bee allergy status; Z88.0 Allergy status to penicillin; Z91.048 Other nonmedicinal substance allergy status; F17.210 Nicotine dependence, cigarettes, uncomplicated
CPT/HCPCS: 99212; G0463

== ENCOUNTER 2017-04-20 08:54 | Emergency (ER) | payer OTHER ==
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
--- NOTE | 2017-04-20 11:08 | RAD ---
HISTORY: Bleeding, cramping COMPARISONS: None TECHNIQUE: Multiple transverse and longitudinal ultrasound images were obtained of the pelvis using grayscale, color Doppler, and spectral Doppler imaging using the endovaginal transducer. FINDINGS: UTERUS: The uterus measures 10 x 4.2 x 6.4 cm. The uterus is normal in shape, size, contour, and echotexture. ENDOMETRIUM: The endometrial stripe is smooth. The endometrium measures 0.6 cm in thickness. CUL-DE-SAC: There is no free fluid within the cul-de-sac. RIGHT OVARY: The right ovary measures 3.2 x 2.6 x 2.1 cm. Multiple follicles are noted predominantly within the periphery of the right ovary. Normal arterial and venous waveforms are identifiable within the ovary on spectral Doppler imaging. LEFT OVARY: The left ovary measures 3.4 x 2.2 x 2.3 cm. Multiple follicles are noted, predominantly within the periphery of the left ovary. Normal arterial and venous waveforms are identifiable within the ovary on spectral Doppler imaging. BLADDER: The bladder is not well visualized. OTHER: None IMPRESSION: MULTIPLE OVARIAN FOLLICLES ARE NOTED BILATERALLY, PREDOMINANTLY WITHIN THE PERIPHERY OF THE OVARIES. WHILE NONSPECIFIC, THIS PATTERN CAN BE ASSOCIATED WITH POLYCYSTIC OVARIAN SYNDROME. OTHERWISE UNREMARKABLE ULTRASOUND OF THE PELVIS.
[2017-04-20 11:43] VITALS: BP 110/62
== END 2017-04-20 12:11 | disposition home or self-care (01) ==
LOC: UCCORT 08:54
DX: E28.2 Polycystic ovarian syndrome (principal); Z32.02 Encounter for pregnancy test, result negative; Z72.89 Other problems related to lifestyle; Z72.0 Tobacco use
CPT/HCPCS: 76830; 81003; 84702; 99212; G0463